=== PATIENT | female | born 1935 | race African-American/Black ===

== ENCOUNTER 2017-07-13 22:00 | Emergency (ER) | payer OTHER ==
[2017-07-13 22:13] VITALS: BP 148/76; PULSE 81; TEMP 97.9; BMI 23.8
--- NOTE | 2017-07-13 22:46 | PDOC ---
History of Present Illness - General History Source: Patient Exam Limitations: No Limitations - History of Present Illness Initial Comments: 07/14/17 00:42 The patient is a 81 year old female with past medical history of hypertension, early dementia, pre-diabetes who presents to the ED s/p unwitnessed mechanical fall yesterday. As per daughter, the patient fell while walking down the stairs in her home yesterday where she subsequently fell, hit her right shoulder, her lower back, and ribcage. She currently complains of pain to these areas as well. She denies any LOC, headache, or head trauma. The patient denies any recent illness, fever, or chills. Allergies: NKDA Surgeries: None <Mayi Anderson - Last Filed: 07/14/17 01:53> <Lisa Lezama - Last Filed: 07/14/17 02:20> - General Chief Complaint: Pain Stated Complaint: FALL INJURY Time Seen by Provider: 07/13/17 22:30 Past History <Mayi Anderson - Last Filed: 07/14/17 01:53> - Past Medical History COPD: No Dementia: Yes (alzehimers) Diabetes: Yes HTN: Yes Hypercholesterolemia: Yes Other medical history: Arthritis - Immunization History Immunization Up to Date: Yes - Suicide/Smoking/Psychosocial Hx Smoking History: Unknown if ever smoked Have you smoked in the past 12 months: No Number of Cigarettes Smoked Daily: 0 Information on smoking cessation initiated: No Hx Alcohol Use: No Drug/Substance Use Hx: No Substance Use Type: None <Lisa Lezama - Last Filed: 07/14/17 02:20> - Past Medical History Allergies/Adverse Reactions: Allergies Allergy/AdvReac Type Severity Reaction Status Date / Time No Known Allergies Allergy Verified 07/13/17 22:10 Home Medications: Ambulatory Orders Amlodipine/Valsartan/Hcthiazid [Zzaux-Qkluu-Iuwr 5-160-12.5 mg] 1 each PO DAILY 09/22/15 Memantine HCl [Namenda Xr] 28 mg PO DAILY 09/22/15 Metformin HCl 500 mg PO DAILY 09/22/15 Naproxen [Naprosyn -] 500 mg PO BID 09/22/15 Rosuvastatin [Crestor -] 10 mg PO DAILY 09/22/15 Acetaminophen W/ Codeine #3 [Tylenol # 3 -] 1 tab PO TID PRN #10 tablet MDD 3 Lidocaine 5% Patch [Lidoderm -] 1 patch TP DAILY PRN #30 patch 01/04/16 Review of Systems - Review of Systems Able to Perform ROS?: Yes Comments:: 07/14/17 00:45 CONSTITUTIONAL: Absent: fever, chills, diaphoresis, generalized weakness, malaise, loss of appetite HEENT: Absent: rhinorrhea, nasal congestion, throat pain, throat swelling, difficulty swallowing, mouth swelling, ear pain, eye pain, visual Changes CARDIOVASCULAR: Absent: chest pain, syncope, palpitations, irregular heart rate, lightheadedness , peripheral edema RESPIRATORY: Absent: cough, shortness of breath, dyspnea with exertion, orthopnea, wheezing, stridor, hemoptysis GASTROINTESTINAL: Absent: abdominal pain, abdominal distension, nausea, vomiting, diarrhea, constipation, melena, hematochezia GENITOURINARY: Absent: dysuria, frequency, urgency, hesitancy, hematuria, flank pain, genital pain MUSCULOSKELETAL: Present: right shoulder pain SKIN: Absent: rash, itching, pallor HEMATOLOGIC/IMMUNOLOGIC: Absent: easy bleeding, easy bruising, lymphadenopathy, frequent infections ENDOCRINE: Absent: unexplained weight gain, unexplained weight loss, heat intolerance, cold intolerance NEUROLOGIC: Absent: headache, focal weakness or paresthesias, dizziness, unsteady gait, seizure, mental status changes, bladder or bowel incontinence PSYCHIATRIC: Absent: anxiety, depression, suicidal or homicidal ideation, hallucinations. <[facility] - Last Filed: 07/14/17 01:53> *Physical Exam - Vital Signs Last Vital Signs Temp Pulse Resp BP Pulse Ox 97.9 F 81 20 148/76 99 07/13/17 22:10 07/13/17 22:10 07/13/17 22:10 07/13/17 22:10 07/13/17 22:10 - Physical Exam Comments: 07/14/17 01:15 GENERAL: Well-appearing, well-nourished. No apparent distress. HEENT: Normocephalic, atraumatic. PERRL, EOM intact. CARDIOVASCULAR: Normal S1, S2. Regular rate and rhythm. PULMONARY: Clear to auscultation bilaterally. ABDOMEN: Soft, non-distended, non-tender. EXTREMITIES: Right shoulder: unable to extend due to pain Normal ROM in all four extremities. No gross deformities. SKIN: Warm, dry. No rash NEUROLOGICAL: No focal neurological deficits. <Mayi Anderson - Last Filed: 07/14/17 01:53> - Vital Signs Last Vital Signs Temp Pulse Resp BP Pulse Ox 97.9 F 81 20 148/76 99 07/13/17 22:10 07/13/17 22:10 07/13/17 22:10 07/13/17 22:10 07/13/17 22:10 <Lisa Lezama - Last Filed: 07/14/17 02:20> ED Treatment Course - RADIOLOGY Radiograph Interpretation: 07/14/17 01:53 EXAM: HEAD CT WITHOUT CONTRAST HISTORY: Patient fell COMPARISON: None. FINDINGS: Involutional changes. No hemorrhage. No mass. No visible infarct. Osseous structures are intact THIS DOCUMENT HAS BEEN ELECTRONICALLY SIGNED Konstantin Lozano MD <Mayi Anderson - Last Filed: 07/14/17 01:53> Medical Decision Making - Medical Decision Making 07/14/17 02:12 81-year-old female was brought in by her daughter was concerned about a recent fall. The patient states that she fell on the stairs 24 hours ago and was had persistent right shoulder and right rib cage pain. The daughter states her mother has some dementia and doesn't trust her mother's memory of the incident. The patient is not on any anticoagulation. Initially the patient was unable to raise her right shoulder and arm due to pain, but after Tylenol. She was able to fully extend it. CAT scan of the head did not show any acute intracranial pathology. Right shoulder radiograph did not show any fracture or dislocation. Right humerus. The humerus is intact Right rib cage radiographs was reviewed and no rib fractures were appreciated Chest x-ray was negative for any pneumothorax 07/14/17 02:20 C-spine CAT scan showed degenerative changes only. Was negative for any cervical fracture or malalignment <Lisa Lezama - Last Filed: 07/14/17 02:20> *DC/Admit/Observation/Transfer - Attestations Scribe Attestion: 07/14/17 00:47 Documentation prepared by Mayi Anderson, acting as medical secretary teacher for Lisa Lezama MD. <Mayi Anderson - Last Filed: 07/14/17 01:53> <Lisa Lezama - Last Filed: 07/14/17 02:20> Diagnosis at time of Disposition: Right shoulder pain Qualifiers: Chronicity: acute Qualified Code(s): M25.511 - Pain in right shoulder Rib contusion Qualifiers: Encounter type: initial encounter Laterality: right Qualified Code(s): S20.211A - Contusion of right front wall of thorax, initial encounter - Discharge Dispostion Disposition: HOME Condition at time of disposition: Stable - Referrals Referrals: Aayush Grimm [Primary Care Provider] - - Patient Instructions Printed Discharge Instructions: DI for Rib Contusion, DI for Shoulder Pain Additional Instructions: Please take tylenol for pain Return for any worsening symptoms
[2017-07-14] MEDS ORDERED: ACETAMINOPHEN 325 MG TABLET (FP) PO ONE (01:54)
[2017-07-14] MEDS ORDERED: ACETAMINOPHEN 325 MG TABLET (FP) ONE (02:06)
== END 2017-07-14 03:15 | disposition home or self-care (01) ==
LOC: JER 22:00
DX: S20.211A Contusion of right front wall of thorax, initial encounter (principal); M25.511 Pain in right shoulder; I10 Essential (primary) hypertension; G30.9 Alzheimer's disease, unspecified; F02.80 Dementia in other diseases classified elsewhere, unspecified severity, without behavioral disturbance, psychotic disturbance, mood disturbance, and anxiety; R73.03 Prediabetes; M19.90 Unspecified osteoarthritis, unspecified site; E78.00 Pure hypercholesterolemia, unspecified; Z79.84 Long term (current) use of oral hypoglycemic drugs; W10.9XXA Fall (on) (from) unspecified stairs and steps, initial encounter; Y93.89 Activity, other specified; Y92.009 Unspecified place in unspecified non-institutional (private) residence as the place of occurrence of the external cause
CPT/HCPCS: 70450-TC; 71045-TC-FY; 71101-TC-RT-FY; 72125-TC; 73030-TC-RT-FY; 73060-TC-RT-FY; 99283-25

== ENCOUNTER 2023-08-31 12:51 | Emergency (ER) | payer OTHER ==
[2023-08-31 12:59] VITALS: BP 146/83; PULSE 88; RESP 16; TEMP 98.2; BMI 26.0
[2023-08-31 14:37] LABS: BASO % 0.8 % (0-2.0); EOS % 10.7 % (0-4.5); HEMATOCRIT 41.2 % (32.4-45.2); HEMOGLOBIN 14.2 GM/dL (10.7-15.3); LYMPH % 39.8 % (8-40); MCH 34.2 pg (25.7-33.7); MCHC 34.4 g/dl (32.0-36.0); MEAN CELL VOLUME 99.2 fl (80-96); MEAN PLT VOLUME 8.1 fl (7.5-11.1); MONO % 7.3 % (3.8-10.2); NEUT % 41.4 % (42.8-82.8); PLATELET COUNT 246 10^3/uL (134-434); RBC 4.15 M/mm3 (3.60-5.2); RDW 13.3 % (11.6-15.6); WHITE BLOOD COUNT 3.8 K/mm3 (4.0-10.0)
[2023-08-31 16:14] LABS: ALBUMIN 3.7 g/dl (3.4-5.0); BLOOD UREA NITROGEN 16.1 mg/dL (7-18)
[2023-08-31 16:17] LABS: CREATININE 0.8 mg/dL (0.55-1.3)
[2023-08-31 16:19] LABS: BILIRUBIN,TOTAL 1.5 mg/dL (0.2-1)
== END 2023-08-31 16:22 | disposition home or self-care (01) ==
LOC: JER 12:51
DX: R05.2 Subacute cough (principal); R06.02 Shortness of breath; Z20.822 Contact with and (suspected) exposure to COVID-19
CPT/HCPCS: 0241U-QW; 36415; 71046-TC-FY; 80053; 84484; 85025; 87040; 93005; 93010; 99285-25